=== PATIENT | male | born 1995 | race Caucasian/White ===

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

== ENCOUNTER 2017-01-19 01:08 | Emergency (ER) | payer MEDICAID ==
--- NOTE | 2017-01-19 02:28 | XRAY Preliminary Report ---
Exam: XR RIBS W/PA CHEST RT IMPRESSION: 1. No acute abnormality seen in the chest or ribs. [facility] SITE ID: [id number]
--- NOTE | 2017-01-19 02:30 | XRAY Report ---
EXAM: RIGHT RIB RADIOGRAPHY EXAM DATE: 01/19/2017 02:01 AM. CLINICAL HISTORY: Pain after injury. COMPARISON: 09/16/2016. TECHNIQUE: 1 view of the chest and 4 views of the ribs. FINDINGS: Bones: No acute fracture seen. Lungs: No alveolar consolidation or pleural effusion noted. No pneumothorax identified. Mediastinum: With and exam limitations, cardiomediastinal silhouette is unremarkable. Other: None. IMPRESSION: 1. No acute abnormality seen in the chest or ribs. [facility] Referring Provider Line: [phone] SITE ID: [id number]
[2017-01-19] MEDS ORDERED: IBUPROFEN 600 MG TABLET PO STA (02:33)
[2017-01-19] MEDS ORDERED: ACETAMINOPHEN 325 MG TABLET PO STA (02:42)
--- NOTE | 2017-01-19 02:42 | ED Physician Documentation ---
PD HPI TRUNK INJURY - Stated complaint Stated Complaint: RIB PN - Chief complaint Chief Complaint: Abd Pain - History obtained from History obtained from: Patient - History of Present Illness Location: Right chest Type of injury: Blunt / blow Timing - onset: How many days ago (4) Timing - details: Abrupt onset, Still present Quality: Pain Improved by: Immobilization Worsened by: Moving, Palpating Associated symtptoms: No: Swelling, Discoloration Contributing factors: No: Anticoagulated Similar symptoms before: Has not had sx before Recently seen: Not recently seen - Additional information Additional information: Patient is a 21 year old male with no significant past medical history who is presenting to the emergency department for right sided rib pain. Patient states that about 4 days ago he was going down some stairs and he slipped hitting his chest on the railing. patient states that his symptoms did not go away with ibuprofen so he came in for evaluation. Review of Systems Constitutional: denies: Fever, Chills Eyes: reports: Reviewed and negative Ears: reports: Reviewed and negative Nose: reports: Reviewed and negative Throat: reports: Reviewed and negative Cardiac: reports: Chest pain / pressure. denies: Palpitations, Calf pain Respiratory: denies: Dyspnea, Cough, Wheezing GI: denies: Nausea, Vomiting : reports: Reviewed and negative Skin: denies: Rash, Lesions, Abrasion (s), Laceration (s) Musculoskeletal: denies: Neck pain, Back pain, Extremity pain Neurologic: denies: Generalized weakness, Focal weakness Immunocompromised: denies: Immunocompromised PD PAST MEDICAL HISTORY - Past Medical History Past Medical History: No Cardiovascular: None Respiratory: None Neuro: None Endocrine/Autoimmune: None - Past Surgical History Past Surgical History: Yes HEENT: Tonsil/Adenoidectomy - Present Medications Home Medications: Ambulatory Orders Medication Instructions Recorded Confirmed No Known Home Medications [No 01/19/17 01/19/17 Known Home Medications] - Allergies Allergies/Adverse Reactions: Allergies Allergy/AdvReac Type Severity Reaction Status Date / Time No Known Drug Allergies Allergy Verified 05/06/14 14:08 - Social History Does the pt smoke?: No Smoking Status: Current every day smoker Does the pt drink ETOH?: No Does the pt have substance abuse?: No - Immunizations Immunizations are current?: Yes - POLST Patient has POLST: No PD ED PE NORMAL - Vitals Vital signs reviewed: Yes - General General: Alert and oriented X 3, No acute distress - HEENT HEENT: Atraumatic, PERRL - Neck Neck: Supple, no meningeal sign - Cardiac Cardiac: RRR, No murmur - Respiratory Respiratory: No respiratory distress - Abdomen Abdomen: Soft, Non distended - Derm Derm: Normal color, Warm and dry, No rash - Extremities Extremities: No deformity, No edema - Neuro Neuro: Alert and oriented X 3, No motor deficit, No sensory deficit, Normal speech - Psych Psych: Normal mood, Normal affect PD ED PE EXPANDED - Cardiac Cardiac: Chest wall TTP (mild tenderness to palpation near t 4 region of mid anterior chest, no ecchymosis, no step offs, no gross deformity) Results - Vitals Vitals: Vital Signs - 24 hr 01/19/17 01:15 Temperature 36.6 C Heart Rate 82 Respiratory 18 Rate Blood Pressure 135/80 H O2 Saturation 100 Oxygen O2 Source Room air - Rads (name of study) chest x-ray Radiology: Final report received (normal chest x-ray) PD MEDICAL DECISION MAKING - ED course Complexity details: reviewed old records, reviewed results, re-evaluated patient , considered differential, d/w patient ED course: Patient was seen and examined at bedside. Patient was sent for imaging. when patient returned the results were reviewed. there was no acute fracture or dislocation. Patient required no further work up and was stable for discharge with outpatient follow up. Departure - Departure Disposition: 01 Home, Self Care Clinical Impression: Contusion of rib on right side Condition: Good Instructions: ED Contusion Chest Wall Follow-Up: primary,care provider [Other] - As Needed Comments: Your diagnostics today were within normal limits. there is no acute fracture or dislocation. You should make sure that you take deep breaths and motrin or tylenol as needed for pain. the symptoms can last for up to a month. You should follow up with your doctor as needed. You should return to the emergency department for fevers and cough.
[2017-01-19] MEDS ORDERED: IBUPROFEN 600 MG TABLET PO ONE (02:44)
[2017-01-19] MEDS ORDERED: ACETAMINOPHEN 500 MG TABLET PO ONE (02:49)
[2017-01-19 03:03] VITALS: BP 128/80
== END 2017-01-19 03:03 | disposition home or self-care (01) ==
LOC: ED 01:08
DX: S20.211A Contusion of right front wall of thorax, initial encounter (principal); W10.8XXA Fall (on) (from) other stairs and steps, initial encounter; F17.200 Nicotine dependence, unspecified, uncomplicated
CPT/HCPCS: 71101; 99283; A9270

== ENCOUNTER 2017-08-13 21:46 | Emergency (ER) | payer MEDICAID ==
[2017-08-13 21:54] VITALS: BP 149/76
[2017-08-13] MEDS ORDERED: IBUPROFEN 800 MG TABLET PO STA (22:02)
--- NOTE | 2017-08-13 22:04 | ED Physician Documentation ---
History of Present Illness - Stated complaint Stated Complaint: CHEST PX - Chief complaint Chief Complaint: General - History obtained from History obtained from: Patient - History of Present Illness Timing: Other (The last 2 weeks has had intermittent very sharp high right chest pain that is worse with motion and deep breathing but not with exertion. He never had this before. No injury. Family history is without close relatives with early coronary disease. No personal or family history of DVT or PE, no recent travel.) Review of Systems Constitutional: denies: Fever, Chills, Fatigue Cardiac: denies: Palpitations, Pedal edema, Calf pain Respiratory: reports: Cough. denies: Dyspnea PD PAST MEDICAL HISTORY - Past Medical History Past Medical History: No Cardiovascular: None Respiratory: None Endocrine/Autoimmune: None - Past Surgical History Past Surgical History: Yes HEENT: Tonsil/Adenoidectomy - Present Medications Home Medications: Ambulatory Orders Medication Instructions Recorded Confirmed Ibuprofen [Motrin] 800 mg PO Q8H PRN #30 tablet 08/13/17 - Allergies Allergies/Adverse Reactions: Allergies Allergy/AdvReac Type Severity Reaction Status Date / Time No Known Drug Allergies Allergy Verified 08/13/17 21:54 - Social History Does the pt smoke?: Yes Smoking Status: Current some day smoker Does the pt drink ETOH?: No Does the pt have substance abuse?: No - Immunizations Immunizations are current?: Yes - POLST Patient has POLST: No PD ED PE NORMAL - Vitals Vital signs reviewed: Yes - General General: Alert and oriented X 3, No acute distress - Neck Neck: Supple, no meningeal sign, No bony TTP - Cardiac Cardiac: RRR, No murmur - Respiratory Respiratory: No respiratory distress, Clear bilaterally, Other (Focally tender to right upper costochondral joint) - Abdomen Abdomen: Soft, Non tender - Extremities Extremities: No edema, No calf tenderness / cord - Neuro Neuro: Alert and oriented X 3, Normal speech Results - Vitals Vitals: Vital Signs - 24 hr 08/13/17 21:52 Temperature 37.1 C Heart Rate 100 Respiratory 18 Rate Blood Pressure 149/76 H O2 Saturation 100 Oxygen O2 Source Room air - EKG (time done) 2211 Rate: Rate (enter#) (81) Rhythm: NSR [place]: Normal Intervals: Normal [place] QRS: Normal Ischemia: Normal ST segments Computer interpretation: Agree with computer - Rads (name of study) 2v chest Radiology: EMP read contemporaneously (normal) Departure - Departure Disposition: Home, Self Care Clinical Impression: Costochondritis Condition: Good Record reviewed to determine appropriate education?: Yes Instructions: ED Chest Pain Costochondritis Prescriptions: Ibuprofen [Motrin] 800 mg PO Q8H PRN #30 tablet PRN Reason: PAIN &/OR FEVER Comments: Call your doctor to arrange a follow-up appointment, make the next available appointment. In the interim, return anytime if worse or if new symptoms develop. Your blood pressure was elevated today on check into the emergency department. This does not mean that you have hypertension, it is a common phenomenon to come to the emergency department and have elevated blood pressure. I recommend that you see your primary care physician within the week to have it rechecked when you are feeling better.
--- NOTE | 2017-08-13 22:38 | XRAY Report ---
EXAM: CHEST RADIOGRAPHY EXAM DATE: 08/13/2017 10:26 PM. CLINICAL HISTORY: Chest pain x2 weeks. COMPARISON: 01/19/2017. TECHNIQUE: 2 views. FINDINGS: Lungs/Pleura: Normal volumes. No focal consolidation or evidence of edema. No pleural effusion or pne umothorax. Mediastinum: Normal cardiomediastinal contour. Other: The bones are normal. IMPRESSION: Normal 2-view chest radiography. [facility] Referring Provider Line: [phone] SITE ID: [id number]
--- NOTE | 2017-08-13 22:38 | XRAY Preliminary Report ---
Exam: XR CHEST 2 VIEW X-RAY IMPRESSION: Normal 2-view chest radiography. [facility] SITE ID: [id number]
== END 2017-08-13 23:10 | disposition home or self-care (01) ==
LOC: ED 21:46
DX: M94.0 Chondrocostal junction syndrome [Tietze] (principal); R03.0 Elevated blood-pressure reading, without diagnosis of hypertension; F17.200 Nicotine dependence, unspecified, uncomplicated
CPT/HCPCS: 71046; 93005; 99283; 99284; A9270

== ENCOUNTER 2017-10-11 22:42 | Emergency (ER) | payer MEDICAID ==
--- NOTE | 2017-10-11 23:12 | XRAY Report ---
Procedure Date: 10/11/2017 Accession Number: [id number] / [id number] Procedure: XR - Chest 2 View X-Ray CPT Code: 86635 FULL RESULT: EXAM: CHEST RADIOGRAPHY EXAM DATE: 10/11/2017 11:02 PM. CLINICAL HISTORY: Fever, cough. COMPARISON: CHEST 2 VIEW 08/13/2017. TECHNIQUE: 2 views. FINDINGS: Lungs/Pleura: No focal opacities evident. No pleural effusion. No pneumothorax. Normal volumes. Mediastinum: Heart and mediastinal contours are unremarkable. Other: None. IMPRESSION: Stable negative 2-view chest radiography. [facility]
[2017-10-11] MEDS ORDERED: KETOROLAC 60 MG/2 ML VIAL IM STA (23:18)
[2017-10-11] MEDS ORDERED: PSEUDOEPHEDRINE 30 MG TABLET PO STA (23:18)
--- NOTE | 2017-10-11 23:26 | ED Physician Documentation ---
PD HPI URI - Stated complaint Stated Complaint: COUGH/SOA/MIGRAINE/CHILLS - Chief complaint Chief Complaint: Resp - History obtained from History obtained from: Patient, Family - History of Present Illness Timing - onset: How many days ago (3) Timing details: Gradual onset, Still present Associated symptoms: Chills, Nasal congestion, Rhinorrhea, Productive cough Contributing factors: No: Sick contact Similar symptoms before: No diagnosis Recently seen: Clinic - Additional information Additional information: patient is a 22 year old male with no significant past medical history who is presenting to the emergency department for nasal congestion and cough. Patient reports that he was recently treated with a antibiotics for an asymptomatic ear infection. Patient reports that his congestion has been persistent and with reports that he is snoring at night. Patient complained of chills but has not taken his temperature. Review of Systems Constitutional: reports: Chills Ears: denies: Ear pain, Drainage/discharge Nose: reports: Rhinorrhea / runny nose, Congestion, Sinus pressure / pain Throat: denies: Sore throat Respiratory: reports: Cough. denies: Wheezing GI: denies: Nausea, Vomiting : reports: Reviewed and negative Immunocompromised: denies: Immunocompromised PD PAST MEDICAL HISTORY - Past Medical History Cardiovascular: None Respiratory: None Endocrine/Autoimmune: None - Past Surgical History Past Surgical History: Yes HEENT: Tonsil/Adenoidectomy - Present Medications Home Medications: Ambulatory Orders Medication Instructions Recorded Confirmed No Known Home Medications [No 10/11/17 10/11/17 Known Home Medications] - Allergies Allergies/Adverse Reactions: Allergies Allergy/AdvReac Type Severity Reaction Status Date / Time No Known Drug Allergies Allergy Verified 10/11/17 22:47 - Social History Does the pt smoke?: Yes Smoking Status: Current some day smoker Does the pt drink ETOH?: No Does the pt have substance abuse?: No - Immunizations Immunizations are current?: Yes - POLST Patient has POLST: No PD ED PE NORMAL - Vitals Vital signs reviewed: Yes - General General: Alert and oriented X 3 - HEENT HEENT: Atraumatic - Neck Neck: Supple, no meningeal sign - Cardiac Cardiac: RRR, No murmur - Respiratory Respiratory: Clear bilaterally - Abdomen Abdomen: Soft - Derm Derm: Normal color, No rash - Extremities Extremities: No deformity, No calf tenderness / cord - Neuro Neuro: Alert and oriented X 3 Eye Opening: Spontaneous PD ED PE EXPANDED - HEENT HEENT: R TM dull, L TM dull, Nasal congestion Results - Vitals Vitals: Vital Signs - 24 hr 10/11/17 10/11/17 22:44 23:45 Temperature 36.9 C Heart Rate 92 86 Respiratory 20 18 Rate Blood Pressure 143/80 H 139/78 H O2 Saturation 98 99 Oxygen O2 Source Room air - Rads (name of study) chest x-ray Radiology: Final report received (normal) PD MEDICAL DECISION MAKING - ED course Complexity details: reviewed old records, reviewed results, re-evaluated patient , considered differential, d/w patient, d/w family ED course: Patient was seen and examined at bedside. Chest x-ray had already been performed and was within normal limits. patient was treated with toradol and pseudophed. patient required no further inpatient work up at this time and was stable for discharge with outpatient follow up. - Sepsis Event Vital Signs: Vital Signs - 24 hr 10/11/17 10/11/17 22:44 23:45 Temperature 36.9 C Heart Rate 92 86 Respiratory 20 18 Rate Blood Pressure 143/80 H 139/78 H O2 Saturation 98 99 Oxygen O2 Source Room air Departure - Departure Disposition: 01 Home, Self Care Clinical Impression: URI (upper respiratory infection) Condition: Good Instructions: ED Viral Syndrome Follow-Up: Teresa Mccabe ARNP [Primary Care Provider] - Within 3 Days Comments: Your diagnostics today were within normal limits. there are no signs of infection. Your symptoms are likely secondary to allergies and a virus. you should take over the counter nasal decongestants and make sure you stay well hydrated. you should follow up with your doctor if your symptoms persist. You may return to the emergency department at any time for new, worsening or uncontrollable symptoms. Discharge Date/Time: 10/11/17 23:45
[2017-10-12 00:09] VITALS: BP 139/78
== END 2017-10-11 23:45 | disposition home or self-care (01) ==
LOC: ED 22:42
DX: J06.9 Acute upper respiratory infection, unspecified (principal); F17.200 Nicotine dependence, unspecified, uncomplicated
CPT/HCPCS: 71046; 96372; 99283; A9270